=== PATIENT | male | born 1985 | race Caucasian/White ===

== ENCOUNTER 2017-08-21 06:24 | Inpatient (IN) | payer MEDICAID, OTHER ==
[~2017-08-21] VITALS: Ht 162.6 cm; Wt 63.6 kg
[~2017-08-21 06:24] MED LIST: HYDR-309 PO; IBUP-2077 PO; TRAM50TA4 PO
[2017-08-21] MEDS ORDERED: RINGERS SOLUTION,LACTATED 1,000 ML IV ONE ×2 (06:37→08:00)
[2017-08-21] MEDS ORDERED: CeFAZolin 2 GM/DEXTROSE 0 ML IV ONE (06:37)
[2017-08-21] MEDS ORDERED: CeFAZolin 2 GM/DEXTROSE 50 ML IV ONE (07:00)
[2017-08-21] MEDS ORDERED: SODIUM CHLORIDE 0.9% 1,000 ML IV SCH (07:00)
[2017-08-21] MEDS ORDERED: BUPIVACAINE HCL/PF 0.5% 30 ML VIAL ONE (07:43)
== END 2017-08-21 10:10 | disposition home or self-care (01) | DRG 558 ==
LOC: 4E 06:24
PROVIDERS: ADMIT Orthopaedic Surgery; ATTEND Orthopaedic Surgery
DX: M75.111 Incomplete rotator cuff tear or rupture of right shoulder, not specified as traumatic (principal); Z53.20 Procedure and treatment not carried out because of patient's decision for unspecified reasons; Z88.8 Allergy status to other drugs, medicaments and biological substances
CPT/HCPCS: 87081; J0690; J3490; J7120